=== PATIENT | female | born 1975 | race Caucasian/White ===

== ENCOUNTER 2016-05-21 00:05 | Emergency (ER) | payer OTHER ==
[2016-05-21] MEDS ORDERED: IOPAMIDOL 300 (61%) 150 ML VIAL IV ONE (00:06)
[2016-05-21] MEDS ORDERED: HYDROMORPHONE HCL 0.5 MG/0.5 ML SYRINGE ONE (00:22)
[2016-05-21 00:49] LABS: ABSOLUTE NEUTROPHIL COUNT 4.9 K/mm3 (1.8-7.7); BASO % 0.5 % (0.2-1.0); EOS # 0.2 (0.0-0.5); HEMATOCRIT 37.7 % (37.0-47.0); HEMOGLOBIN 12.7 gm/l (12.0-16.0); IMM NEUT% 0.3 % (0-1); LYMPH # 1.7 (1.0-4.8); LYMPH % 23.7 % (15-45); MEAN CORPUSCULAR HGB CONC 33.7 g/dl (33.0-37.0); MEAN PLATELET VOLUME 10.4 fl (7.4-10.4); MONO # 0.5 (0.0-0.8); MONO % 7.1 % (4-12); NEUT % 66.4 % (43-75); PLATELET COUNT 265 K/mm3 (130-400); RED CELL DISTRIBUTION WIDTH 12.3 % (11.5-14.5)
[2016-05-21 00:59] LABS: ALB/GLOB RATIO 1.4 (>1.0); ALBUMIN 4.1 gm/dL (3.5-5.7); CALCIUM 9.4 mg/dL (8.6-10.3)
[2016-05-21 01:33] LABS: SPECIFIC GRAVITY 1.015 (1.001-1.030); URINE APPEARANCE CLOUDY; URINE BILIRUBIN 2+ (NEGATIVE); URINE BLOOD 1+ (NEGATIVE); URINE COLOR AMBER; URINE GLUCOSE (UA) NEGATIVE (NEGATIVE); URINE LEUKOCYTE ESTERASE 1+ (NEGATIVE); URINE NITRITE POSITIVE (NEGATIVE); URINE PROTEIN TRACE (NEGATIVE); URINE UROBILINOGEN 8 mg/dL (0-1 mg/dl)
[2016-05-21 01:36] LABS: HCG,QUALITATIVE URINE NEGATIVE
[2016-05-21 01:39] LABS: URINE BACTERIA 4+; URINE EPITHELIAL CELLS 15-20 /hpf; URINE MUCUS 4+
[2016-05-21] MEDS ORDERED: LACTATED RINGERS 1,000 ML ONE (01:45)
[2016-05-21 02:04] LABS: PH,URINE 6.5 (5.0-8.0); SPECIFIC GRAVITY 1.015 (1.001-1.030); URINE BILIRUBIN 3+ (NEGATIVE); URINE BLOOD NEGATIVE (NEGATIVE); URINE GLUCOSE (UA) NEGATIVE (NEGATIVE); URINE LEUKOCYTE ESTERASE TRACE (NEGATIVE); URINE NITRITE POSITIVE (NEGATIVE); URINE PROTEIN NEGATIVE (NEGATIVE)
[2016-05-21 02:10] LABS: URINE APPEARANCE CLOUDY; URINE COLOR AMBER; URINE UROBILINOGEN 8 mg/dL (0-1 mg/dl)
[2016-05-21 02:11] LABS: URINE BACTERIA 4+; URINE MUCUS 2+
[2016-05-21] MEDS ORDERED: SULFAMETHOXAZOLE 800 MG/TRIMETHOPRIM 160 MG TABLET ONE (03:20)
[2016-05-21] MEDS ORDERED: Potassium Chloride ORAL SOLN 20 MEQ/15 ML UDCUP ONE (03:52)
--- NOTE | 2016-05-21 08:54 | CT ---
Exam Type: ABD/PELVIS W/ CON Date and Time: 05/21/2016 1:40 AM Clinical information: Diffuse abdominal pain. Comparison: None Procedure: Imaging device: [employer] Aquilion [address] scanner 1 mm axial images were obtained through the abdomen and pelvis. Stacked reconstructed 3, 4 and 5 mm images were photographed in the axial coronal and sagittal planes. No oral contrast was utilized for this examination. 125 ml of Isovue-300 was injected intravenously. Exam: with intravenous contrast. FINDINGS: Lung bases:The visualized lung bases appear to be appropriate with no mass, effusion or consolidation visualized. Liver: the liver is homogeneous with no discrete abnormality visualized. No definite findings of biliary dilatation are observed. Spleen: The spleen is homogeneous and does not appear to be enlarged. Gallbladder: Normal without enlargement or evidence of adjacent inflammatory changes. Pancreas: Normal without enlargement or evidence of adjacent inflammatory changes. Adrenal glands: Normal without enlargement or evidence of adjacent inflammatory changes. Abdominal aorta: The aorta is of normal caliber and appears to be without significant atherosclerotic disease. Kidneys: The kidneys appear to be symmetric in size with no perinephric inflammatory changes are identified. No current findings of hydronephrosis are seen. Bowel structures: The visualized bowel is of normal caliber without evidence of dilatation or obstruction. No free fluid or mesenteric inflammatory changes are identified. Appendix: The appendix is well-visualized and appears to be of normal caliber. No periappendiceal inflammatory changes or CT findings of appendicitis are currently observed. Bladder: Moderately distended. Hernia: No abdominal wall or inguinal hernia is visualized on this examination. Adenopathy: No significant enlarged adenopathy is visualized. Osseous structures: A sclerotic focus is seen within the medial left iliac wing, likely reflecting a bone island. Pelvic structures: No discrete pelvic abnormalities are visualized in this examination. IMPRESSION: 1. Moderate distention of the bladder. 2. A normal appearance of the appendix without current CT evidence of appendicitis. 3. Likely bone islands within the medial aspect of the left ilium. 4. Examination is slightly limited by motion artifact. The findings were called to the emergency room at 0255 hours, 05/21/2016, by [facility].
== END 2016-05-21 04:21 | disposition home or self-care (01) ==
LOC: EDSEX 00:05 → ED 00:05
DX: N39.0 Urinary tract infection, site not specified (principal); E87.6 Hypokalemia
CPT/HCPCS: 83690; 81025; 85025; 87086; 80053; 87186 ×2; 81001 ×2; 87077; 74177; 99284 ×2; 96374; 96361 ×2; 51701; A9270 ×2; J7120; Q9967; J1170